=== PATIENT | female | born 1980 | race Caucasian/White ===

== ENCOUNTER 2016-08-26 10:00 | Inpatient (IN) | payer OTHER ==
[2016-10-03 10:55] VITALS: BMI 19.2
[2016-10-07 08:37] LABS: URINE APPEARANCE CLOUDY; URINE BILIRUBIN NEGATIVE (NEGATIVE); URINE COLOR LTYELLOW; URINE GLUCOSE (UA) NEGATIVE (NEGATIVE); URINE KETONE NEGATIVE (NEGATIVE); URINE NITRITE NEGATIVE (NEGATIVE); URINE UROBILINOGEN NEGATIVE E.U./dl (0.2-1.0)
[2016-10-07 08:50] LABS: URINE BLOOD 3+ (NEGATIVE); URINE LEUK ESTERASE 3+ (NEGATIVE); URINE PROTEIN 2+ (NEGATIVE)
[2016-10-07 08:54] LABS: URINE MUCUS RARE; URINE RBC 107 /hpf (0-3); URINE WBC 580 /hpf (3-5); YEAST RARE
[2016-10-07] MEDS ORDERED: ROPIVACAINE HCL 0.5% 30ML VIAL ONE (09:35)
[2016-10-07] MEDS ORDERED: MIDAZOLAM HCL 2 MG/2 ML SINGLE DOSE VIAL ONE ×2 (09:37)
[2016-10-07] MEDS ORDERED: VASOPRESSIN 20 UNITS/ML VIAL IV ONE (10:07)
[2016-10-07] MEDS ORDERED: LIDOCAINE HCL 2% 100 MG/5 ML DISP.SYRIN ONE (10:08)
[2016-10-07] MEDS ORDERED: ROCURONIUM BROMIDE 50 MG/5 ML VIAL ONE (10:08)
[2016-10-07] MEDS ORDERED: PROPOFOL 20 ML ONE (10:08)
[2016-10-07] MEDS ORDERED: DEXAMETHASONE SOD PHOSPHATE 4 MG/1 ML VIAL IVPUSH PRN (10:18)
[2016-10-07] MEDS ORDERED: PROMETHAZINE HCL 25 MG/1 ML VIAL IVPB PRN (10:18)
[2016-10-07] MEDS ORDERED: ONDANSETRON 4 MG/2 ML VIAL IVPUSH PRN (10:18)
[2016-10-07] MEDS ORDERED: ceFAZolin SODIUM 1 GM VIAL IVPB ONE (10:30)
[2016-10-07] MEDS ORDERED: HYDROmorphone *PCA* 10MG/50ML DISP.SYRIN PCA SCH (10:30)
--- NOTE | 2016-10-07 10:30 | HP ---
History & Physical Update - History History: No Change - Physical Physical: No Change - Assessment Assessment: No Change - Plan Plan: No Change
[2016-10-07] MEDS ORDERED: IBUPROFEN 800 MG/8 ML IJ IVPB PRN (10:32)
[2016-10-07] MEDS ORDERED: DEXAMETHASONE SOD PHOSPHATE 4 MG/1 ML VIAL ONE (10:44)
[2016-10-07] MEDS ORDERED: HYDROmorphone HCL/PF 1 MG/ML VIAL (FOR PYXIS CHARGING ONLY) ONE (10:45)
[2016-10-07] MEDS ORDERED: GLYCOPYRROLATE 0.2 MG/1 ML VIAL ONE (11:02)
[2016-10-07] MEDS ORDERED: NEOSTIGMINE METHYLSULFATE 0.5 MG/ML - 10 ML MDV ONE (11:02)
[2016-10-07] MEDS ORDERED: HYDROmorphone *PCA* 10MG/50ML DISP.SYRIN PCA ONE (12:09)
[2016-10-07] MEDS ORDERED: HYDROmorphone HCL CARPU-JECT 2 MG/1 ML DISP.SYRIN ONE (12:09)
[2016-10-07] MEDS: HYDROmorphone HCL CARPU-JECT 1 MG/1 ML DISP.SYRIN IVPUSH PRN ×2 (12:15→12:25)
--- NOTE | 2016-10-07 13:34 | OP ---
Operative Note - Note: Operative Date: 10/07/16 Pre-Operative Diagnosis: Leiomyomatous Uterus. Intramural myoma. Submucosal myoma. Left ovarian cyst Operation: Abdominal myomectomy. Left ovarian cystectomy Findings: 2-3 cyst 8 myoma removed Post-Operative Diagnosis: Same as Pre-op Surgeon: Dayanara Castellon Youth Minister: Maryuri Preciado Anesthesia: General Estimated Blood Loss (mls): 25 Operative Report Dictated: Yes
[2016-10-07] MEDS: LACTATED RINGERS SOLUTION 1,000 ML IV SCH (15:04)
[2016-10-07] MEDS: CEFAZOLIN (PRE-DOCKED) 50 ML IVPB SCH (17:20)
[2016-10-07 18:11] LABS: BASOPHIL 0.2 % (0-2.0); MCH 20.4 pg (25.7-33.7); MCHC 29.9 g/dl (32.0-36.0); MEAN CELL VOLUME 68.1 fl (80-96); MEAN PLT VOLUME 8.3 fl (7.5-11.1); NEUTROPHILS 93.2 % (42.8-82.8); PLATELET COUNT 305 K/MM3 (134-434); RDW 17.7 % (11.6-15.6); WHITE BLOOD COUNT 12.4 K/mm3 (4.0-10.0)
[2016-10-07] MEDS: ONDANSETRON 4 MG/2 ML VIAL IVPUSH PRN (18:32)
[2016-10-08] MEDS: CEFAZOLIN (PRE-DOCKED) 50 ML IVPB SCH (01:51)
[2016-10-08 08:15] LABS: BASOPHIL 0.2 % (0-2.0); MCH 20.4 pg (25.7-33.7); MCHC 29.7 g/dl (32.0-36.0); MEAN CELL VOLUME 68.7 fl (80-96); MEAN PLT VOLUME 8.2 fl (7.5-11.1); NEUTROPHILS 78.2 % (42.8-82.8); PLATELET COUNT 313 K/MM3 (134-434); RDW 17.5 % (11.6-15.6); WHITE BLOOD COUNT 10.6 K/mm3 (4.0-10.0)
[2016-10-08] MEDS ORDERED: PCA PUMP KEY 1 EACH EACH ONE (08:28)
--- NOTE | 2016-10-08 08:38 | PN ---
Progress Note, Physician Chief Complaint: Pt with some incision pain, otherwise no complaints. Tolerating clears. Not yet OOB. Denies CP/SOB/F/C/KYLE. Cuello catheter with clear yellow urine overnight, removed this a.m., no void yet. No flatus yet. States she is hungry. - Current Medication List Current Medications: Active Medications Dexamethasone Sodium Phosphate (Decadron Injection -) 4 mg IVPUSH ONCE PRN PRN Reason: NAUSEA AND/OR VOMITING Diphenhydramine HCl (Benadryl Injection -) 12.5 mg IVPUSH ONCE PRN PRN Reason: FOR ITCHING Enoxaparin Sodium (Lovenox -) 40 mg SQ DAILY NARCISO Hydromorphone HCl (Dilaudid Injection -) 1 mg IVPUSH [id number] PRN PRN Reason: PAIN Stop: 10/10/16 10:19 Last Admin: 10/07/16 12:25 Dose: 1 mg Hydromorphone HCl (Dilaudid Solar Electric Installer -) 0 mg MAT MAKER MAT MAKER NARCISO PRN Reason: Protocol Stop: 10/14/16 10:19 Last Admin: 10/07/16 14:20 Dose: 10 mg Lactated Ringer's (Lactated Ringers Solution) 1,000 mls @ 125 mls/hr IV ASDIR NARCISO Last Admin: 10/07/16 15:04 Dose: 125 mls/hr Ibuprofen (Caldolor Injection -) 800 mg IVPB Q8H PRN PRN Reason: FEVER Ondansetron HCl (Zofran Injection) 4 mg IVPUSH Q6H PRN PRN Reason: NAUSEA AND/OR VOMITING Last Admin: 10/07/16 18:32 Dose: 4 mg Promethazine HCl (Phenergan Injection -) 12.5 mg IVPB Q6H PRN PRN Reason: NAUSEA AND/OR VOMITING - Objective Vital Signs: Vital Signs Temperature 98.9 F 10/08/16 06:00 Pulse Rate 94 H 10/08/16 06:20 Respiratory Rate 18 10/08/16 06:20 Blood Pressure 100/60 10/08/16 06:20 O2 Sat by Pulse Oximetry (%) 98 10/07/16 14:28 Constitutional: Yes: Well Nourished, No Distress, Calm Eyes: Yes: Conjunctiva Clear, EOM Intact HENT: Yes: Atraumatic, Normocephalic Neck: Yes: Supple, Trachea Midline Respiratory: Yes: Regular, CTA Bilaterally Gastrointestinal: Yes: Normal Bowel Sounds, Soft Extremities: Yes: WNL Wound/Incision: Yes: Clean/Dry, Well Approximated Neurological: Yes: Alert, Oriented Psychiatric: Yes: Alert, Oriented Labs: CBC, BMP 10/08/16 06:00 Problem List - Problems (1) S/P myomectomy Code(s): Z98.890 - OTHER SPECIFIED POSTPROCEDURAL STATES Assessment/Plan 35 y/o POD#1 s/p abdominal myomectomy - AFVSS - Hgb 8.4 this a.m., stable, pt asymptomatic. - clear diet, advance to regular - Dilaudid for pain control - encourage ambulation - pt desires to go home today - if able to ambulate, void and tolerate diet, may go home
[2016-10-08] MEDS ORDERED: HYDROmorphone HCL 2 MG TABLET PO PRN ×2 (08:42→09:53)
[2016-10-08] MEDS: ENOXAPARIN NA (PORCINE) 40 MG/0.4 ML DISP.SYRIN SQ SCH (10:00)
[2016-10-08 11:47] LABS: ANISOCYTOSIS 1+; HYPOCHROMIA 4+; MICROCYTOSIS 1+; OVALOCYTES 1+; POLYCHROMASIA 1+
[2016-10-08] MEDS: LACTATED RINGERS SOLUTION 1,000 ML IV SCH ×2 (11:54→19:22)
[2016-10-08] MEDS: NITROFURANTOIN MACROCRYSTAL 50 MG CAPSULE (FP) PO SCH ×3 (12:00→23:56)
--- NOTE | 2016-10-08 12:28 | PN ---
Progress Note (short form) - Note Progress Note: Anesthesia postop note and pain management follow up 35 y/o F s/p GA for abdominal myomectomy, tap blocks and master craftsman for pain management. POD#1, vss, aaox3, pain well controlled. No anesthesia complications. Will d/c master craftsman when patient tolerating po.
[2016-10-08] MEDS: ONDANSETRON 4 MG/2 ML VIAL IVPUSH PRN (13:13)
--- NOTE | 2016-10-08 13:13 | PATH ---
Surgical Pathology Report Patient Name: JOSE CATALAN [facility]. Rec. #: [id number] /Age/Gender: 1980 (Age: 35) / F Account: [id number] Location: [facility] OBS/HEARING AND SPEECH ASSISTANT Taken: 10/07/2016 Received: 10/07/2016 Reported: 10/08/2016 Physicians: Dayanara Castellon M.D. Specimen(s) Received A: FIBROIDS B: LEFT OVARIAN CYST WALL Clinical History Fibroid uterus, ovarian cyst Final Diagnosis A. FIBROIDS, ABDOMINAL MYOMECTOMY: LEIOMYOMATA WITH DEGENERATIVE CHANGES (LARGEST 2.2 CM). B. OVARY, LEFT, CYST WALL, CYSTECTOMY: BENIGN CYST MOST CONSISTENT WITH FOLLICULAR CYST. Electronically Signed Sharath Gallegos M.D. Gross Description A. Received in formalin labeled "fibroids" is a 7 g aggregate of 7 north nodules, consistent with fibroids. The fibroids range from 0.5-2.2 cm in greatest dimension. Sectioning reveals focal calcifications within one of the fibroids. The remaining parenchyma is north with a whorled architecture. Deer Farmer sections are submitted in 4 cassettes with the calcified fibroid in cassette 2. B. Received in formalin labeled "left ovarian cyst wall" is a 0.7 cm in greatest dimension north soft tissue fragment. The specimen is submitted in toto in one cassette. /10/07/201610/07/2016
[2016-10-08] MEDS ORDERED: ACETAMINOPHEN 325 MG TABLET (FP) PO PRN (21:28)
[2016-10-08] MEDS: IBUPROFEN 600 MG TABLET (FP) PO PRN (21:33)
[2016-10-09] MEDS: NITROFURANTOIN MACROCRYSTAL 50 MG CAPSULE (FP) PO SCH ×2 (05:58→11:59)
[2016-10-09 08:50] LABS: BASOPHIL 0.6 % (0-2.0); EOSINOPHIL 0.4 % (0-4.5); MCH 20.9 pg (25.7-33.7); MCHC 30.4 g/dl (32.0-36.0); MEAN CELL VOLUME 68.9 fl (80-96); MEAN PLT VOLUME 8.4 fl (7.5-11.1); NEUTROPHILS 69.8 % (42.8-82.8); PLATELET COUNT 291 K/MM3 (134-434); RDW 17.8 % (11.6-15.6); WHITE BLOOD COUNT 6.6 K/mm3 (4.0-10.0)
[2016-10-09 08:52] VITALS: BP 91/55; PULSE 71; TEMP 99
--- NOTE | 2016-10-09 09:12 | DS ---
Physical Examination Vital Signs: Vital Signs Temperature 99 F 10/09/16 08:50 Pulse Rate 71 10/09/16 08:50 Respiratory Rate 20 10/09/16 08:50 Blood Pressure 91/55 10/09/16 08:50 O2 Sat by Pulse Oximetry (%) 98 10/07/16 14:28 Labs: CBC, BMP 10/09/16 07:45 Discharge Summary Reason For Visit: INTRAMURAL MYOMA/OVARIAN CYST Current Active Problems S/P myomectomy (Acute) Procedures: Principal: Abdominal myomectomy, left ovarian cystectomy Hospital Course: Patient admitted for abdominal myomectomy and ovarian cystectomy on 10/07/16. Pt underwent uncomplicated procedure - see op report for full details. Patient had an unremarkable post op recovery other than being diagnosed with Enterococcus UTI which was treated. Patient was eating, ambulating, passing flatus and voiding by post op day 2 and was discharged home in stable condition. Condition: Good - Instructions Diet, Activity, Other Instructions: Dr. Dayanara Castellon [employer] discharge instructions Physical activity Resume your normal everyday activity as toleratedbut no heavy lifting or strenuous exercise until seen by your surgeon. You may walk unlimited amounts and climb stairs. You may resume driving the car when you feel safe and comfortable behind the wheel. No sexual activity as instructed by Dr. Castellon. Wound care If there are tapes on the skin leave them in place. They will peel off in the next 7 to 10 days. Do Not Peel them off. You may shower the day after surgery. If there are tapes present on the skin, you may shower over them. Diet There are no dietary restrictions. Eat healthy, high-fiber foods. Drink 6 to 8 glasses of liquid each day. This will assist in keeping your bowels regular. Pain management You may take Tylenol or Ibuprofen (for example, Motrin, Advil etc.)over the counter for mild pain. If any pain prescription medication is ordered should be taken as prescribed for moderate to severe pain. Call Dr. Castellon for any of the following: Severe pain not relieved by medication Fever of 101 or higher Excessive bleeding or drainage on dressing Inability to urinate Call the office at [phone] for an appointment in seven days. Referrals: Dayanara Castellon MD [Staff Physician] - (1-2 weeks) Disposition: HOME - Home Medications Comprehensive Discharge Medication List: Ambulatory Orders Ibuprofen [Motrin -] 400 mg PO PRN PRN 11/15/14 Omeprazole [Prilosec (RX)] 40 mg PO PRN PRN 11/15/14 Pnv No.122/Iron/Folic Acid [ Multi Tablet] 1 each PO DAILY 10/03/16 Hydromorphone [Dilaudid -] 2 mg PO Q4H #30 tablet MDD 6 10/08/16 Nitrofurantoin Monohyd/M-Cryst [Macrobid -] 100 mg PO BID #10 capsule 10/09/16
[2016-10-09] MEDS: ENOXAPARIN NA (PORCINE) 40 MG/0.4 ML DISP.SYRIN SQ SCH (09:41)
[2016-10-09] MEDS: IBUPROFEN 600 MG TABLET (FP) PO PRN (11:59)
--- NOTE | 2016-11-11 16:40 | OP ---
DATE OF OPERATION: 10/07/2016 OPERATION: 1. Abdominal myomectomy 2. Left ovarian cystectomy PREOPERATIVE DIAGNOSIS: 1. Leiomyomatous uterus 2. Intramural myoma 3. Submucosal myomas 4. Left ovarian cyst SURGEON: Dayanara Castellon MD CALCULATION CLERK: Maryuri Preciado DO ANESTHESIA: General ANESTHESIOLOGIST: FINDINGS: Uterus noted to have 8 myomas removed and a left 2-3 cm ovarian cyst. ESTIMATED BLOOD LOSS: 25 mL PROCEDURE: Patient was taken to the operating room, placed in supine position, prepped and draped in the usual sterile fashion. General anesthesia had been given. A timeout had been performed in accordance with hospital regulation. A Pfannenstiel skin incision was made with a scalpel. Cautery was then used to go through the layers of abdominal to the level of the fascia. Fascia was cut in the midline, and cautery was then used to open the fascia in smiling fashion. Kochers was then used to bluntly, sharply dissect the rectus muscle off the fascia. The muscle was split in the midline. The peritoneal cavity was entered and carried upward and downward. A leiomyomatous uterus was noted with multiple myomas. A Soila drain was inserted into the broad ligament and used as a tourniquet after the uterus was exteriorized. Pitressin was then infiltrated into multiple layers of the uterus. Multiple incisions were then used to get to the myomas. Some intramural myomas were enucleated out, and palpating noted the submucosal myoma. Submucosal myoma was then enucleated. The endometrium was then closed carefully, using 2-0 Vicryl suture. All intramural myomas were also closed in layers using 0- Vicryl, continuous and locking and baseball stitch imbricating the serosa. Hemostasis was achieved using figure-of-8 sutures. Interceed was then placed over the uterus. The tourniquet was then removed, and a left ovarian cyst was noted. Cautery was then used to open the cyst, and the cyst wall was then removed, and cautery of the ovary was then done. Hemostasis was achieved. Both uterus and ovary were then placed back into the abdomen with Interceed covering the uterus for protection from further adhesions. Irrigation was done. Peritoneum closed using 0 Vicryl suture. Fascia was then closed using 0 Vicryl suture in two parts. Skin was then closed using 4-0 Vicryl in a subcuticular fashion. Wound was washed and dressed. Patient tolerated procedure well. Cecille [id number] MTDD
== END 2016-10-09 13:25 | disposition home or self-care (01) | DRG 519 ==
LOC: JSAMEDAYSX 10-07 05:16 → J3W 10-07 14:20
PROVIDERS: ADMIT Obstetrics & Gynecology; ATTEND Obstetrics & Gynecology
PROC: 0UB10ZZ Excision of Left Ovary, Open Approach (ICD-10-PCS; 2016-10-07)
PROC: 0UB90ZZ Excision of Uterus, Open Approach (ICD-10-PCS; principal; 2016-10-07 09:30)
DX: D25.0 Submucous leiomyoma of uterus (principal); N39.0 Urinary tract infection, site not specified; D25.1 Intramural leiomyoma of uterus; N83.202 Unspecified ovarian cyst, left side; B95.2 Enterococcus as the cause of diseases classified elsewhere; D64.9 Anemia, unspecified
CPT/HCPCS: 36415; 81003; 81015; 84703; 85025; 87086; 87186; 88305-TC; 94760